=== PATIENT | male | born 1965 | race American Indian/Alaskan Native ===

== ENCOUNTER → 2018-10-12 10:58 | Outpatient (CLI) | payer OTHER, SELFPAY ==
--- NOTE | 2018-10-12 | DI.RAD.S_ITS ---
PROCEDURE: XR CERVICAL SPINE 2V OR 3V INDICATIONS: pain and numbness TECHNIQUE: 3 view(s) of the cervical spine were acquired. COMPARISON: [facility], , SPINE CERVICAL 2 OR 3VW, 08/26/2016, 13:54. [facility], , SPINE CERVICAL 2 OR 3VW, 03/06/2016, 8:30. [facility] , SPINE CERVICAL 2 OR 3VW, 12/04/2015, 8:51. [facility], , SPINE CERVICAL 2 OR 3VW, 10/02/2015, 9:41. FINDINGS: Bones: No fractures or dislocations to the T1 level. The lateral masses of C1 appear intact on the odontoid view. No suspicious bony lesions. Prior spine fusion surgery from C4-C6 with interbody disc prosthesis material noted at the 2 intervening levels. Soft tissues: No prevertebral soft tissue swelling. IMPRESSION: Prior spine fusion from C4-C6, normal alignment maintained. Dictated by: Sarmad Leal M.D. on 10/12/2018 at 11:53 Approved by: Sarmad Leal M.D. on 10/12/2018 at 11:55
== END ==
PROVIDERS: PCP Orthopaedic Surgery Orthopaedic Surgery of the Spine; Visit Provider Physician Assistant
DX: M54.2 Cervicalgia (principal); R20.0 Anesthesia of skin; Z98.1 Arthrodesis status
CPT/HCPCS: 72040

== ENCOUNTER 2019-03-17 13:24 | Emergency (ER) | payer OTHER, SELFPAY ==
[2019-03-17 13:24] VITALS: BP 118/70; PULSE 100; RESP 16; O2SAT 95
--- NOTE | 2019-03-17 14:32 | PC.NURSE ---
Pt has removed all monitoring devices. pt in room 8 in visual of nursing station. Both side rails in place, call button in reach. Pt resting comfortably, respirations even and unlabored. Appears in no acute distress.
--- NOTE | 2019-03-17 14:44 | DI.CT.S_ITS ---
PROCEDURE: CT CERVICAL SPINE WO CON INDICATIONS: neck pain, fall and passed out, etoh+ TECHNIQUE: Noncontrast 3 mm thick sections acquired from the skull base to the T4 level. Sagittal and coronal reformats were then constructed. For radiation dose reduction, the following was used: automated exposure control, adjustment of mA and/or kV according to patient size. COMPARISON: None. FINDINGS: Image quality: Excellent. Bones: Postsurgical changes compatible C4-C6 ACDF. Orthopedic hardware is intact. No lucencies are identified at the bone-hardware interface. No fractures or dislocations. Visualized superior ribs are intact. Spine degenerative disc disease and facet arthropathy. Soft tissues: Prevertebral soft tissues are normal in thickness. No paravertebral hematomas. No apical pneumothoraces. IMPRESSION: No fracture. No acute osseous lesion. If symptoms and/or clinical suspicion for pathology persists, evaluation with MRI may be helpful for further assessment. Dictated by: Sharri Velazquez MD, PhD on 03/17/2019 at 15:19 Approved by: Sharri Velazquez MD, PhD on 03/17/2019 at 15:24
--- NOTE | 2019-03-17 14:44 | DI.CT.S_ITS ---
PROCEDURE: CT HEAD/BRAIN WO CON INDICATIONS: passed out, headache, +ETOH TECHNIQUE: Noncontrast 4.5 mm thick angled axial sections acquired from the foramen magnum to the vertex, with coronal and sagittal reformats. For radiation dose reduction, the following was used: automated exposure control, adjustment of mA and/or kV according to patient size. COMPARISON: None. FINDINGS: Image quality: An age-indeterminate fracture involving the nasal bone is present. CSF spaces: Basal cisterns are patent. No extra-axial fluid collections. Ventricles are normal in size and shape. Brain: No midline shift. No intracranial masses or hemorrhage. Esparza-white matter interface is normal. Skull and face: Calvarium and visualized facial bones are intact, without suspicious lesions. Sinuses: Visualized sinuses and mastoids are clear. IMPRESSION: 1. Negative head CT. No acute intracranial hemorrhage. 2. Age indeterminate, but likely chronic, nasal bone fracture. Dictated by: Vickey Zelaya M.D. on 03/17/2019 at 14:16 Approved by: Vickey Zelaya M.D. on 03/17/2019 at 14:18
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
[2019-03-17 15:02] VITALS: BP 131/83; PULSE 104; RESP 19; O2SAT 92
[2019-03-17] MEDS: SODIUM CHLORIDE 0.9% 1,000 ML 1000 ML IV (15:23)
[2019-03-17] MEDS: ACETAMINOPHEN 325 MG TABLET 975 MG PO (15:24)
[2019-03-17] MEDS: ONDANSETRON 4 MG/2 ML INJ IV ×2 (15:24→19:49)
[2019-03-17 15:37] LABS: Add Manual Diff / Slide Review NO; Basophils Absolute Auto 100 /uL (0-100); Basophils Percent Auto 2.3 % (0-2); Eosinophils Absolute Auto 0 /uL (0-450); Eosinophils Percent Auto 0.2 % (2-4); Hematocrit 45.9 % (41-53); Hemoglobin 15.8 g/dL (13.5-17.5); Lymphocytes Absolute Auto 600 /uL (1100-4500); Lymphocytes Percent Auto 16.1 % (25-40); Mean Corpuscular HGB Conc 34.3 % (30-36); Mean Corpuscular Hemoglobin 31.2 PG (26-34); Mean Corpuscular Volume 90.8 fL (80-100); Monocytes Absolute Auto 200 /uL (0-900); Neutrophils Absolute Auto 2900 /uL (1500-7000); Neutrophils Percent Auto 76.4 % (50-75); Platelet Count 89 X10^3/uL (150-400); Red Blood Cell Count 5.06 X10^6/uL (4.5-5.9); Red Cell Distribution Width 17.9 % (11.6-14.8); White Blood Cell Count 3.8 X10^3/uL (4.5-11.0)
[2019-03-17 15:49] LABS: Alanine Aminotransferase 132 IU/L (<50); Albumin Globulin Ratio 1.3 (1.0-2.8); Alkaline Phosphatase 118 U/L (38-126); Aspartate Aminotransferase 352 IU/L (17-59); BUN Creatinine Ratio 5.7 (6-22); Bilirubin Total 1.1 mg/dL (0.2-1.3); Blood Urea Nitrogen 4 mg/dL (9-20); Calcium 7.8 mg/dL (8.4-10.2); Carbon Dioxide 29 mmol/L (22-32); Chloride 101 mmol/L (98-107); Estimated Glomerular Filt Rate > 60.0 mL/min (>60); Glucose 92 mg/dL (70-100); HEMOLYSIS 17 (0-50); Lipase 644 U/L (23-300); Potassium 3.8 mmol/L (3.4-5.1); Sodium 143 mmol/L (137-145)
[2019-03-17 15:57] LABS: Ethanol (ETOH) 381 mg/dL
[2019-03-17 16:29] LABS: Creatine Kinase 168 U/L (55-170)
[2019-03-17 16:30] VITALS: BP 106/66; PULSE 95; O2SAT 95
[2019-03-17 16:36] LABS: Troponin I < 0.012 ng/mL (0.01-0.034)
[2019-03-17 16:39] LABS: CKMB % Relative Index 0.4 % (1.5-5.0)
[2019-03-17 17:00] VITALS: BP 116/79; PULSE 86; O2SAT 98
--- NOTE | 2019-03-17 17:31 | PC.NURSE ---
Pt has removed own cervical collar
--- NOTE | 2019-03-17 17:37 | PC.NURSE ---
Pt sitting up in bed watching staff. I checked on pt. He requests sleeping pill. provider aware and no new orders at this time. Offered pt to use restroom and ask if she needs anything. Pt declines at this time but again requests sleeping pill. reminded pt again that there is nothing ordered at this time.
--- NOTE | 2019-03-17 18:37 | PC.NURSE ---
Pt ambulated to restroom with steady gait. Provider notified. Per provider, asked pt who can pick him up, Pt states he does not have anyone. No contacts listed in chart. Drew notified.
[2019-03-17 19:17] VITALS: BP 102/58; PULSE 88; RESP 16; O2SAT 100
== END 2019-03-17 20:20 | disposition home or self-care (01) ==
PROVIDERS: Emergency Provider Nurse Practitioner Family; PCP Orthopaedic Surgery Orthopaedic Surgery of the Spine
DX: S09.90XA Unspecified injury of head, initial encounter (principal); F10.920 Alcohol use, unspecified with intoxication, uncomplicated; M54.2 Cervicalgia; R55 Syncope and collapse
CPT/HCPCS: 36415; 70450; 72125; 80053; 80320; 82550; 82553; 83690; 84484; 85025; 93005; 93010; 96361; 96374; 96375; 99282; 99285; J2405

== ENCOUNTER → 2019-11-04 17:15 | Outpatient (ROUT) | payer OTHER, SELFPAY ==
[2019-11-04 17:48] LABS: NT-proBNP (BNP-Adult 18+) 2180 pg/mL (<125)
== END ==
PROVIDERS: PCP Orthopaedic Surgery Orthopaedic Surgery of the Spine; Visit Provider Physician Assistant
DX: K70.11 Alcoholic hepatitis with ascites (principal)
CPT/HCPCS: 83880

== ENCOUNTER 2020-01-29 17:06 | Emergency (ER) | payer MEDICAID, OTHER, SELFPAY ==
[2020-01-29] VITALS (52 sets, daily range): BP systolic 63–98; BP diastolic 33–62; PULSE 86–103; RESP 0–42; TEMP 31.1–32.8; O2SAT 90–100
--- NOTE | 2020-01-29 | DI.RAD.S_ITS ---
PROCEDURE: XR CHEST 1V INDICATIONS: CENTRAL LINE PLACEMENT TECHNIQUE: One view of the chest was acquired. COMPARISON: [facility], , XR CHEST 1V, 01/29/2020, 17:31. FINDINGS: Surgical changes and devices: Endotracheal tube and NG tube are unchanged. There is a new right central venous catheter, the tip of which is projected over the right atrium or IVC. Lungs and pleura: Lung volumes are low and dense basilar and mid lung consolidation is redemonstrated. No pneumothorax. Mediastinum: Mediastinal contours appear normal. Heart size is normal. Bones and chest wall: No suspicious bony lesions. Overlying soft tissues appear unremarkable. IMPRESSION: Right central venous catheter, the tip of which is projected over the right atrium and should be retracted approximately 10 cm. Dictated by: Kena Coto M.D. on 01/29/2020 at 18:01 Approved by: Kena Coto M.D. on 01/29/2020 at 18:04
--- NOTE | 2020-01-29 17:09 | DI.RAD.S_ITS ---
PROCEDURE: XR CHEST 1V INDICATIONS: ams, r/o pneumothorax, line placement, ET tube placement TECHNIQUE: One view of the chest was acquired. COMPARISON: [facility], CR, XR CHEST 1 VIEW, 11/29/2019, 10:48. FINDINGS: Surgical changes and devices: Patient is status post median sternotomy. An endotracheal tube is present in some of the films and is 3.6 cm above the vikas. An NG tube is present, the tip of which is not visualized. Lungs and pleura: Lung volumes are low. Pulmonary radiopacities are present at the bilateral lung bases, most confluent on the left. There is diffuse interstitial opacities. No definite pneumothorax. Mediastinum: Mediastinal contours appear normal. Heart size is normal. Bones and chest wall: No suspicious bony lesions. Overlying soft tissues appear unremarkable. IMPRESSION: 1. Status post intubation. 2. Low lung volumes and pulmonary edema. 3. Probable consolidation at the left lung base versus atelectasis. Dictated by: Kena Coto M.D. on 01/29/2020 at 17:34 Approved by: Kena Coto M.D. on 01/29/2020 at 17:36
[2020-01-29] MEDS: NOREPINEPHRINE 4 MG in DEXTROSE 5% IN WATER 250 ML 30.48 ML IV (17:48)
[2020-01-29] MEDS: SODIUM CHLORIDE 0.9% 1,000 ML 1000 ML IV ×2 (17:48→18:29)
[2020-01-29] MEDS: DEXTROSE 50 % IN WATER 25 GM/50 ML SYRINGE IV ×2 (18:00→19:27)
[2020-01-29] MEDS: ROCURONIUM 50 MG/5 ML INJ 51 MG IV (18:04)
[2020-01-29] MEDS: propofoL 1,000 MG/100 ML VIAL 2.568 MG IV (18:06)
[2020-01-29 18:14] LABS: COVID19 -Nasal RAPID Negative (Negative)
[2020-01-29] MEDS: PANTOPRAZOLE 40 MG VIAL IV (18:22)
--- NOTE | 2020-01-29 18:24 | ED_ITS ---
HPI - Altered Mental Status General Chief Complaint: Unresponsive Stated Complaint: decreased mental status Time Seen by Provider: 01/29/20 17:07 Source: EMS Mode of arrival: EMS Limitations: altered mental status History of Present Illness HPI narrative: Patient is a 54-year-old male with known alcoholic cirrhosis fluids had decreased p.o. intake the last 2-3 days according to family has become occulta touch with [facility] and progressively decreasing. He was nonverbal yesterday but no longer keeping his GCS of 9 according to EMS. Family states that there is vomit all over the bathroom and found alcohol under his bed. Currently a full code. Viola ([phone] Patient does not follow commands but does localize pain MD complaint: altered mental status Context: alcohol abuse Related Data Home Medications Medication Instructions Recorded Confirmed No Known Home Medications 03/17/19 03/17/19 Allergies Allergy/AdvReac Type Severity Reaction Status Date / Time aspirin [ASPIRIN] Allergy Severe ANAPHYLAXIS Verified 01/29/20 19:49 ibuprofen [IBUPROFEN] Allergy Mild TONGUE Verified 01/29/20 19:49 SWELLING Review of Systems Review of Systems ROS Unobtainable: Unobtainable due to medical condition Patient History Medical History (Updated 01/29/20 @ 18:38 by Aide Dorantes DO) Alcoholism (Acute) Cervical disc herniation (Acute) Social History (Updated 03/17/19 @ 14:53 by MARVIN Redmond) Smoking Status: Never smoker alcohol intake: current substance use type: does not use Smoking Status: Never smoker alcohol intake frequency: 3 or more drinks per day Exam Initial Vital Signs Initial Vital Signs: Vital Signs Pulse Rate 93 H 01/29/20 17:06 Respiratory Rate 24 01/29/20 17:06 Blood Pressure 63/43 L 01/29/20 17:06 Gen.: Patient is jaundice response to pain and voice HEENT: Dried blood around mouth head is atraumatic Neck: No JVD Lungs: Clear bilaterally Cardiac: Regular rate no murmur Abdomen: Distended soft, positive bowel sounds Extremitie: No gross bony deformities peripheral pulses intact his all extremities Neurologic: Opens eyes spontaneously, responds to pain Procedures Central Line Placement Right IJ: Time Out Performed: Yes Patient Placed on Monitor/Pulse Ox: Yes MD Prep: mask, gown and gloves Central Line Prep: Chlorhexidine scrub Local Anesthetic: lidocaine 1% Ultrasound Used for Placement: Yes Complications: none Additional Comments: Initial attempt at right IJ was unsuccessful. Right SC: Time Out Performed: Yes Patient Placed on Monitor/Pulse Ox: Yes Prep: mask, gown and gloves Central Line Prep: Chlorhexidine scrub Ultrasound Used for Placement: No Post Procedure X-Ray: no pneumothorax seen Patient Tolerated Procedure: No complications Additional Comments: Unsuccessful Right Femoral: Time Out Performed: Yes MD Prep: mask, gown and gloves Complications: arterial puncture/cannulation Additional Comments: Arterial puncture unsuccessful Intubation Time out performed: Yes sedative: Etomidate Mg Given: 20 paralytic: Rocuronium Mg Given: 100 Laryngoscope: fiber optic video scope ET Tube Size: 7.5 Tube Placement Confirmation: Visualized tube passing through cords Patient Tolerated Procedure: Well Intubation Complications: none Scores GCS [place] coma scale eye opening: Spontaneous [place] coma scale verbal response: Sounds [place] coma scale motor response: Localising [place] coma scale total score: 11 Course Orders Ordered: ED Orders 01/29/20 17:08 Blood Culture Stat EKG-12 Lead Stat 01/29/20 17:09 XR chest 1V Stat 01/29/20 17:11 Fresh Frozen Plasma Stat Packed Cells Stat Type and Screen Stat 01/29/20 17:27 Urinalysis and Microscopic Stat Urine Drug Screen, Rapid Stat 01/29/20 17:35 Endotracheal tube suction As needed 01/29/20 17:40 COVID19 -ED/INPAT/OR/L&D Stat 01/29/20 18:14 Arterial Blood Gas Daily 01/29/20 18:48 Acetaminophen Stat Ammonia (NH3) Stat Complete Blood Count AUTO DIFF Stat Comprehensive Metabolic Panel Stat Ethanol (ETOH) Stat Procalcitonin Stat Thyroid Stimulating Hormone Stat Troponin & CK Cardiac Panel Stat 01/29/20 18:59 Lactate (Lactic Acid) Stat Partial Thromboplastin Time Stat Prothrombin Time INR Stat 01/30/20 17:45 Arterial Blood Gas Daily 01/31/20 17:45 Arterial Blood Gas Daily 02/01/20 17:45 Arterial Blood Gas Daily 02/02/20 17:45 Arterial Blood Gas Daily 02/03/20 17:45 Arterial Blood Gas Daily 02/04/20 17:45 Arterial Blood Gas Daily 02/05/20 17:45 Arterial Blood Gas Daily 02/06/20 17:45 Arterial Blood Gas Daily 02/07/20 17:45 Arterial Blood Gas Daily 02/08/20 17:45 Arterial Blood Gas Daily 02/09/20 17:45 Arterial Blood Gas Daily 02/10/20 17:45 Arterial Blood Gas Daily 02/11/20 17:45 Arterial Blood Gas Daily Fentanyl (Sublimaze) 30 mcg 0.35 mcg/kg (30 mcg) IV Q1HR PRN PRN Reason: Pain, Severe (7-10) Norepinephrine Bitartrate 4 mg (/ Dextrose) 254 mls @ 30.48 mls/hr IV TITRATE JANELLE; Protocol Last Titration: 01/29/20 18:07 Dose: 20 mcg/min, 76.2 mls/hr Documented by: Admin: 01/29/20 17:48 Dose: 8 mcg/min, 30.48 mls/hr Documented by: VICKI Fentanyl 1,000 mcg/ Dextrose 270 mls @ 16.178 mls/hr IV TITRATE JANELLE; Protocol Last Admin: 01/29/20 19:07 Dose: Not Given Documented by: VICKI Propofol (Propofol) 1,000 mg in 100 mls @ 2.568 mls/hr IV TITRATE JANELLE; Protocol Last Titration: 01/29/20 19:24 Dose: 0 mcg/kg/min, 0 mls/hr Documented by: Titration: 01/29/20 18:23 Dose: 10 mcg/kg/min, 5.136 mls/hr Documented by: Admin: 01/29/20 18:06 Dose: 5 mcg/kg/min, 2.568 mls/hr Documented by: LYSSA Pantoprazole Sodium 80 mg/ (Sodium Chloride) 100 mls @ 10 mls/hr IV CONT JANELLE Last Admin: 01/29/20 19:23 Dose: 8 mg/hr, 10 mls/hr Documented by: VICKI Octreotide Acetate 500 mcg/ (Sodium Chloride) 101 mls @ 10.1 mls/hr IV CONT JANELLE; Protocol Last Admin: 01/29/20 19:23 Dose: 50 mcg/hr, 10.1 mls/hr Documented by: VICKI Discontinued Medications Dextrose (D50w) 25 gm IV NOW ONE Stop: 01/29/20 17:09 Last Admin: 01/29/20 18:00 Dose: 25 gm Documented by: LYSSA Dextrose (D50w) 25 gm IV NOW ONE Stop: 01/29/20 19:26 Last Admin: 01/29/20 19:27 Dose: 25 gm Documented by: LYSSA Etomidate (Amidate) 25.7 mg 0.3 mg/kg (25.7 mg) IV NOW ONE Stop: 01/29/20 17:37 Last Admin: 01/29/20 18:05 Dose: Not Given Documented by: LYSSA Sodium Chloride (Normal Saline 0.9%) 1,000 mls @ 1,000 mls/hr IV BOLUS ONE Stop: 01/29/20 18:36 Last Admin: 01/29/20 17:48 Dose: 1,000 mls/hr Documented by: VICKI Sodium Chloride (Normal Saline 0.9%) 1,000 mls @ 1,000 mls/hr IV BOLUS ONE Stop: 01/29/20 19:22 Last Admin: 01/29/20 18:29 Dose: 1,000 mls/hr Documented by: LYSSA Ceftriaxone Sodium/Dextrose (Rocephin) 2 gm in 50 mls @ 100 mls/hr IV NOW ONE Stop: 01/29/20 19:27 Last Infusion: 01/29/20 19:27 Dose: 0 mls/hr Documented by: Admin: 01/29/20 19:15 Dose: 100 mls/hr Documented by: VICKI Octreotide Acetate (Sandostatin) 50 mcg IV NOW ONE Stop: 01/29/20 18:37 Pantoprazole Sodium (Protonix) 40 mg IV NOW ONE Stop: 01/29/20 17:12 Last Admin: 01/29/20 18:22 Dose: 40 mg Documented by: LYSSA Rocuronium Clifford (Zemuron) 51 mg 0.6 mg/kg (51 mg) IV NOW ONE Stop: 01/29/20 17:37 Last Admin: 01/29/20 18:04 Dose: 51 mg Documented by: LYSSA Vital Signs Vital signs: Vital Signs - 8 hr 01/29/20 17:06 01/29/20 17:13 01/29/20 17:14 Pulse Rate 93 H 97 H 91 H Respiratory Rate 24 14 24 Blood Pressure 63/43 L 74/34 L Pulse Oximetry 99 99 01/29/20 17:15 01/29/20 17:16 01/29/20 17:20 Pulse Rate 90 88 93 H Respiratory Rate 33 H 28 H 35 H Blood Pressure 83/47 L Pulse Oximetry 97 98 99 01/29/20 17:21 01/29/20 17:25 01/29/20 17:30 Pulse Rate 92 H 94 H 88 Respiratory Rate 30 H 29 H 29 H Blood Pressure 91/52 L 89/48 L 72/36 L Pulse Oximetry 99 97 96 01/29/20 17:35 01/29/20 17:40 01/29/20 17:43 Pulse Rate 86 89 91 H Respiratory Rate 42 H 26 H 28 H Blood Pressure 83/46 L Pulse Oximetry 91 100 97 01/29/20 17:45 01/29/20 17:46 01/29/20 17:48 Pulse Rate 91 H 94 H 102 H Respiratory Rate 29 H 21 0 L Blood Pressure 98/62 76/35 L Pulse Oximetry 100 95 90 L 01/29/20 17:50 01/29/20 17:51 01/29/20 17:55 Pulse Rate 97 H 97 H 96 H Respiratory Rate 8 L 21 21 Blood Pressure 81/37 L Pulse Oximetry 98 96 100 01/29/20 17:56 01/29/20 17:57 01/29/20 18:00 Pulse Rate 96 H 96 H 97 H Respiratory Rate 15 17 21 Blood Pressure 71/34 L 70/34 L 80/41 L Pulse Oximetry 100 91 93 01/29/20 18:03 01/29/20 18:05 01/29/20 18:06 Pulse Rate 99 H 99 H 100 H Respiratory Rate 16 14 15 Blood Pressure 87/39 L 88/40 L Pulse Oximetry 100 100 100 01/29/20 18:09 01/29/20 18:10 01/29/20 18:12 Pulse Rate 100 H 102 H 100 H Respiratory Rate 18 24 14 Blood Pressure 86/51 L 85/38 L Pulse Oximetry 100 99 99 01/29/20 18:15 01/29/20 18:18 01/29/20 18:20 Pulse Rate 100 H 100 H 101 H Respiratory Rate 14 14 15 Blood Pressure 84/39 L 84/38 L Pulse Oximetry 99 99 98 01/29/20 18:21 01/29/20 18:24 01/29/20 18:25 Pulse Rate 100 H 100 H 98 H Respiratory Rate 15 17 15 Blood Pressure 82/38 L 73/34 L Pulse Oximetry 98 93 97 01/29/20 18:27 01/29/20 18:30 01/29/20 18:35 Pulse Rate 99 H 98 H 97 H Respiratory Rate 17 15 15 Blood Pressure 72/33 L Pulse Oximetry 97 98 97 01/29/20 18:40 01/29/20 18:41 01/29/20 18:42 Pulse Rate 97 H 97 H 97 H Respiratory Rate 18 17 18 Blood Pressure 74/36 L 73/33 L Pulse Oximetry 99 99 99 01/29/20 18:45 01/29/20 18:50 01/29/20 18:54 Pulse Rate 97 H 97 H 97 H Respiratory Rate 14 20 16 Blood Pressure 85/39 L Pulse Oximetry 98 97 98 01/29/20 18:55 01/29/20 18:57 01/29/20 19:00 Pulse Rate 99 H 100 H 101 H Respiratory Rate 14 14 15 Blood Pressure 88/42 L 91/42 L Pulse Oximetry 98 98 99 01/29/20 19:04 01/29/20 19:05 01/29/20 19:06 Pulse Rate 101 H 101 H 101 H Respiratory Rate 19 18 14 Blood Pressure 96/46 L 96/46 L Pulse Oximetry 97 97 100 01/29/20 19:09 01/29/20 19:10 01/29/20 19:12 Pulse Rate 103 H 103 H 102 H Respiratory Rate 14 15 14 Blood Pressure 89/45 L 86/41 L Pulse Oximetry 100 99 99 01/29/20 19:15 Pulse Rate 101 H Respiratory Rate 14 Blood Pressure 84/41 L Pulse Oximetry 99 MDM - Altered Mental Status Lab Data Attestation: I reviewed the patient's lab results. Result diagrams: 01/29/20 18:48 01/29/20 18:48 Labs: Lab Results 01/29/20 01/29/20 01/29/20 Range/Units 17:40 18:14 18:48 WBC 5.9 (4.5-11.0) X10^3/uL RBC 2.77 L (4.5-5.9) X10^6/uL Hgb 9.5 L (13.5-17.5) g/dL Hct 29.0 L (41-53) % MCV 104.9 H (80-100) fL MCH 34.3 H (26-34) PG MCHC 32.7 (30-36) % RDW 22.0 H (11.6-14.8) % Plt Count 84 L (150-400) X10^3/uL Neut % (Auto) 71.6 (50-75) % Lymph % (Auto) 20.5 L (25-40) % [place] % (Auto) 6.1 (3-14) % Eos % (Auto) 0.6 L (2-4) % Baso % (Auto) 1.2 (0-2) % Neut # (Auto) 4300 (7602-1167) /uL Lymph # (Auto) 1200 (8053-5848) /uL [place] # (Auto) 400 (0-900) /uL Eos # (Auto) 0 (0-450) /uL Baso # (Auto) 100 (0-100) /uL Platelet Estimate Decreased on smear RBC Morphology See below Poikilocytosis 2+ H Anisocytosis 2+ H Acanthocytes (Spur) 2+ PT (10.1-12.7) SECONDS INR (0.9-1.3) APTT ABG pH 7.04 L* (7.35-7.45) ABG pCO2 32.5 L (35-45) mmHg ABG pO2 61 L (80-100) mmHg ABG HCO3 9 L (22-26) mmol/L ABG Total CO2 10 L (21-31) mmol/L ABG O2 Saturation 78 L* (95-100) % ABG Base Excess -22.0 L (-2-2) mmol/L FiO2 60 Sodium (137-145) mmol/L Potassium (3.4-5.1) mmol/L Chloride (98-107) mmol/L Carbon Dioxide (22-32) mmol/L BUN (9-20) mg/dL Creatinine (0.66-1.25) mg/dL Estimated GFR (>60) mL/min BUN/Creatinine Ratio (6-22) Glucose (70-100) mg/dL Lactate (0.7-2.1) mmol/L Calcium (8.4-10.2) mg/dL Total Bilirubin (0.2-1.3) mg/dL AST (17-59) IU/L ALT (<50) IU/L Alkaline Phosphatase (38-126) U/L Ammonia (9-30) umol/L Total Creatine Kinase (55-170) U/L CK-MB (CK-2) (<2.37) ng/mL CK-MB (CK-2) Rel Index (1.5-5.0) % Troponin I (0.01-0.034) ng/mL Total Protein (6.3-8.2) g/dL Albumin (3.5-5.0) g/dL Globulin (1.7-4.1) g/dL Albumin/Globulin Ratio (1.0-2.8) Acetaminophen (10-30) ug/mL Ethyl Alcohol ( - 10) mg/dL COVID-19 PCR Negative (Negative) 01/29/20 01/29/20 01/29/20 Range/Units 18:48 18:48 18:59 WBC (4.5-11.0) X10^3/uL RBC (4.5-5.9) X10^6/uL Hgb (13.5-17.5) g/dL Hct (41-53) % MCV (80-100) fL MCH (26-34) PG MCHC (30-36) % RDW (11.6-14.8) % Plt Count (150-400) X10^3/uL Neut % (Auto) (50-75) % Lymph % (Auto) (25-40) % [place] % (Auto) (3-14) % Eos % (Auto) (2-4) % Baso % (Auto) (0-2) % Neut # (Auto) (8861-4428) /uL Lymph # (Auto) (2137-0871) /uL [place] # (Auto) (0-900) /uL Eos # (Auto) (0-450) /uL Baso # (Auto) (0-100) /uL Platelet Estimate RBC Morphology Poikilocytosis Anisocytosis Acanthocytes (Spur) PT 49.0 H (10.1-12.7) SECONDS INR 4.3 H (0.9-1.3) APTT TNP ABG pH (7.35-7.45) ABG pCO2 (35-45) mmHg ABG pO2 (80-100) mmHg ABG HCO3 (22-26) mmol/L ABG Total CO2 (21-31) mmol/L ABG O2 Saturation (95-100) % ABG Base Excess (-2-2) mmol/L FiO2 Sodium 130 L (137-145) mmol/L Potassium 3.5 (3.4-5.1) mmol/L Chloride 97 L (98-107) mmol/L Carbon Dioxide 10 L (22-32) mmol/L BUN 9 (9-20) mg/dL Creatinine 2.14 H (0.66-1.25) mg/dL Estimated GFR 32.2 L (>60) mL/min BUN/Creatinine Ratio 4.2 L (6-22) Glucose 70 (70-100) mg/dL Lactate (0.7-2.1) mmol/L Calcium 7.0 L (8.4-10.2) mg/dL Total Bilirubin 4.2 H (0.2-1.3) mg/dL AST 807 H (17-59) IU/L ALT 90 H (<50) IU/L Alkaline Phosphatase 109 (38-126) U/L Ammonia 120 H (9-30) umol/L Total Creatine Kinase 243 H (55-170) U/L CK-MB (CK-2) 3.74 H (<2.37) ng/mL CK-MB (CK-2) Rel Index 1.5 (1.5-5.0) % Troponin I 0.025 (0.01-0.034) ng/mL Total Protein 5.6 L (6.3-8.2) g/dL Albumin 2.2 L (3.5-5.0) g/dL Globulin 3.4 (1.7-4.1) g/dL Albumin/Globulin Ratio 0.6 L (1.0-2.8) Acetaminophen < 10 L (10-30) ug/mL Ethyl Alcohol < 10 ( - 10) mg/dL COVID-19 PCR (Negative) 01/29/20 Range/Units 18:59 WBC (4.5-11.0) X10^3/uL RBC (4.5-5.9) X10^6/uL Hgb (13.5-17.5) g/dL Hct (41-53) % MCV (80-100) fL MCH (26-34) PG MCHC (30-36) % RDW (11.6-14.8) % Plt Count (150-400) X10^3/uL Neut % (Auto) (50-75) % Lymph % (Auto) (25-40) % [place] % (Auto) (3-14) % Eos % (Auto) (2-4) % Baso % (Auto) (0-2) % Neut # (Auto) (0062-1628) /uL Lymph # (Auto) (2478-0791) /uL [place] # (Auto) (0-900) /uL Eos # (Auto) (0-450) /uL Baso # (Auto) (0-100) /uL Platelet Estimate RBC Morphology Poikilocytosis Anisocytosis Acanthocytes (Spur) PT (10.1-12.7) SECONDS INR (0.9-1.3) APTT ABG pH (7.35-7.45) ABG pCO2 (35-45) mmHg ABG pO2 (80-100) mmHg ABG HCO3 (22-26) mmol/L ABG Total CO2 (21-31) mmol/L ABG O2 Saturation (95-100) % ABG Base Excess (-2-2) mmol/L FiO2 Sodium (137-145) mmol/L Potassium (3.4-5.1) mmol/L Chloride (98-107) mmol/L Carbon Dioxide (22-32) mmol/L BUN (9-20) mg/dL Creatinine (0.66-1.25) mg/dL Estimated GFR (>60) mL/min BUN/Creatinine Ratio (6-22) Glucose (70-100) mg/dL Lactate 19.1 H* (0.7-2.1) mmol/L Calcium (8.4-10.2) mg/dL Total Bilirubin (0.2-1.3) mg/dL AST (17-59) IU/L ALT (<50) IU/L Alkaline Phosphatase (38-126) U/L Ammonia (9-30) umol/L Total Creatine Kinase (55-170) U/L CK-MB (CK-2) (<2.37) ng/mL CK-MB (CK-2) Rel Index (1.5-5.0) % Troponin I (0.01-0.034) ng/mL Total Protein (6.3-8.2) g/dL Albumin (3.5-5.0) g/dL Globulin (1.7-4.1) g/dL Albumin/Globulin Ratio (1.0-2.8) Acetaminophen (10-30) ug/mL Ethyl Alcohol ( - 10) mg/dL COVID-19 PCR (Negative) Point of Care Testing Glucose POC 77 Imaging Data Chest x-ray: Radiologist's Impression: PROCEDURE: XR CHEST 1V INDICATIONS: ams, r/o pneumothorax, line placement, ET tube placement TECHNIQUE: One view of the chest was acquired. COMPARISON: [facility], CR, XR CHEST 1 VIEW, 11/29/2019, 10:48. FINDINGS: Surgical changes and devices: Patient is status post median sternotomy. An endotracheal tube is present in some of the films and is 3.6 cm above the vikas. An NG tube is present, the tip of which is not visualized. Lungs and pleura: Lung volumes are low. Pulmonary radiopacities are present at the bilateral lung bases, most confluent on the left. There is diffuse interstitial opacities. No definite pneumothorax. Mediastinum: Mediastinal contours appear normal. Heart size is normal. Bones and chest wall: No suspicious bony lesions. Overlying soft tissues appear unremarkable. IMPRESSION: 1. Status post intubation. 2. Low lung volumes and pulmonary edema. 3. Probable consolidation at the left lung base versus atelectasis. Dictated by: Kena Coto M.D. on 01/29/2020 at 17:34 MDM Narrative Medical decision making narrative: Levophed started through peripheral line to maintain map greater than 65 due to severe hypotension. Initially central line was placed patient was localizing did not have any airway issues. 3 central line placement patient started having increased difficulty breathing. Central line placement: [Right IJ] with ultrasound guidance Not compressible veins identified on ultrasound. I watched needle penetrate vein, dark red blood return, nonpulsatile, wire threaded through easily. Site was dilated and catheter placed. All ports had dark red blood flow return with easy flush. Placement was confirmed with x-ray, no complications. Placement was aborted and elected for intubation. Intubation revealed so copious amounts of coffee-ground emesis. ET tube was placed through the vocal cords. After repeated central line attempts in at IJ, subclavian and femoral I 0 was placed. Blood products were started massive transfusion protocol initiated. Different provider Dr. Patel successfully got right IJ. Patient is unstable upper GI bleed. Air left activated have review called. To unit of O-negative blood started sternal illness epilepsy are given to airl ift Dr. Bishop at [facility] accepts patient. Request Rocephin recommends increasing ventilating more and request CBC results. Critical Care Time Critical Care Time Critical Care Time: Yes Total Critical Care Time: 90 Attestation: The high probability of a clinically significant, sudden or life threatening deterioration of the [cardiovascular] system(s) required my full and direct attention, intervention and personal management. The aggregate critical care time was 90 minutes. This time is in addition to time spent performing reported procedures but includes the following: [x] Data Review and interpretation [x] Patient assessment and monitoring of vital signs [x] Documentation [x] Medication orders and management Discharge Plan Departure Patient Disposition: [facility] Clinical Impression: Acute upper gastrointestinal bleeding, Hemorrhagic shock, Respiratory failure Prescriptions: No Action No Known Home Medications RF: 0 Referrals: Kedar Eckert MD [Primary Care Provider] -
[2020-01-29 18:38] LABS: HCO3 ABG 9 mmol/L (22-26); PCO2 ABG 32.5 mmHg (35-45); PO2 ABG 61 mmHg (80-100); TCO2 ABG 10 mmol/L (21-31); pH ABG 7.04 (7.35-7.45)
[2020-01-29 18:39] LABS: Fractionated Inspired Oxygen 60; Oxygen Saturation ABG 78 % (95-100)
[2020-01-29 19:09] LABS: Add Manual Diff / Slide Review NO; Basophils Absolute Auto 100 /uL (0-100); Basophils Percent Auto 1.2 % (0-2); Eosinophils Absolute Auto 0 /uL (0-450); Eosinophils Percent Auto 0.6 % (2-4); Hemoglobin 9.5 g/dL (13.5-17.5); Lymphocytes Absolute Auto 1200 /uL (1100-4500); Lymphocytes Percent Auto 20.5 % (25-40); Mean Corpuscular HGB Conc 32.7 % (30-36); Mean Corpuscular Hemoglobin 34.3 PG (26-34); Mean Corpuscular Volume 104.9 fL (80-100); Monocytes Absolute Auto 400 /uL (0-900); Monocytes Percent Auto 6.1 % (3-14); Neutrophils Absolute Auto 4300 /uL (1500-7000); Neutrophils Percent Auto 71.6 % (50-75); Red Blood Cell Count 2.77 X10^6/uL (4.5-5.9); White Blood Cell Count 5.9 X10^3/uL (4.5-11.0)
[2020-01-29 19:11] LABS: Platelet Count 84 X10^3/uL (150-400)
[2020-01-29 19:13] LABS: Ammonia (NH3) 120 umol/L (9-30)
[2020-01-29 19:15] LABS: INR 4.3 (0.9-1.3)
[2020-01-29 19:15] LABS: Acetaminophen < 10 ug/mL (10-30); Alanine Aminotransferase 90 IU/L (<50); Albumin 2.2 g/dL (3.5-5.0); Albumin Globulin Ratio 0.6 (1.0-2.8); Alkaline Phosphatase 109 U/L (38-126); BUN Creatinine Ratio 4.2 (6-22); Bilirubin Total 4.2 mg/dL (0.2-1.3); Blood Urea Nitrogen 9 mg/dL (9-20); Chloride 97 mmol/L (98-107); Creatine Kinase 243 U/L (55-170); Estimated Glomerular Filt Rate 32.2 mL/min (>60); Ethanol (ETOH) < 10 mg/dL; Globulin 3.4 g/dL (1.7-4.1); Glucose 70 mg/dL (70-100); Sodium 130 mmol/L (137-145); Total Protein 5.6 g/dL (6.3-8.2)
[2020-01-29] MEDS: CEFTRIAXONE 2 GM/50 ML FROZ.PIGGY IV (19:15)
[2020-01-29 19:16] LABS: Carbon Dioxide 10 mmol/L (22-32)
[2020-01-29 19:19] LABS: Potassium 3.5 mmol/L (3.4-5.1)
[2020-01-29 19:23] LABS: Aspartate Aminotransferase 807 IU/L (17-59)
[2020-01-29] MEDS: PANTOPRAZOLE 80 MG in SODIUM CHLORIDE 0.9% 100 ML 10 ML IV (19:23)
[2020-01-29] MEDS: OCTREOTIDE 500 MCG in SODIUM CHLORIDE 0.9% 100 ML 10.1 ML IV (19:23)
[2020-01-29 19:25] LABS: Troponin I 0.025 ng/mL (0.01-0.034)
[2020-01-29 19:29] LABS: Lactate (Lactic Acid) 19.1 mmol/L (0.7-2.1)
[2020-01-29 19:30] LABS: CKMB % Relative Index 1.5 % (1.5-5.0); Creatine Kinase MB 3.74 ng/mL (<2.37)
[2020-01-29 19:31] LABS: HEMOLYSIS 92 (0-50)
[2020-01-29 19:34] LABS: Acanthocytes 2+; Anisocytosis 2+; Platelet Estimate Decreased on smear; Poikilocytosis 2+
[2020-01-29 19:45] LABS: Appearance Urine UA SL CLOUDY; Bilirubin Urine UA 3+ (NEGATIVE); Color Urine UA BROWN; Glucose Urine UA TRACE g/dL (Negative); Ketones Urine UA TRACE (NEGATIVE); Leukocyte Esterase Urine UA TRACE (NEGATIVE); Nitrite Urine UA POSITIVE (Negative); Occult Blood Urine UA 1+ (Negative); Protein Urine UA 3+ (Negative); Specific Gravity Urine UA 1.025 (1.000-1.035); pH Urine UA 6.5 (4.5-8.0)
[2020-01-29 19:49] LABS: Thyroid Stimulating Hormone 0.393 uIU/mL (0.47-4.68)
[2020-01-29 20:01] LABS: UR Morphine/Opiate cutoff 300 Negative (Negative); Ur Creatinine Normal (Normal); Ur Specific Gravity Normal (Normal); Urine Amphetamines Negative (Negative); Urine Barbiturates Negative (Negative); Urine Benzodiazepines Negative (Negative); Urine Cocaine Positive (Negative); Urine MDMA Negative (Negative); Urine Methadone Negative (Negative); Urine Methamphetamines Negative (Negative); Urine Oxycodone Negative (Negative); Urine Phencyclidine Negative (Negative); Urine Tetrahydrocannabinol Positive (Negative); Urine Tricyclic Antidepressant Negative (Negative); Urine pH Normal (Normal)
[2020-01-29 20:03] LABS: Ictotest Urine Positive (Negative)
[2020-01-29 20:04] LABS: Amorphous Sediment Urine 1+; Bacteria Urine Occasional (0-1); Culture Indicated Urine Specimen Cultured; Hyaline Casts Urine 30-100/LPF; Mucus Urine 1+ (Negative); RBC Urine 1-5/HPF (0-5/HPF); WBC Urine 1-5/HPF (0-5/HPF)
--- NOTE | 2020-01-29 20:04 | PC.NURSE ---
Summary Note: Pt arrived via EMS hypotensive, poorly responsive, cold to touch. Placed on monitors, Dr. Dorantes in to evaluate. IV established, NS liter bolus started. Pt continued to deteriorate and decision was made to intubate and sucure the airway. Norepi started for persistent hypotension. Pt intubated w/ difficultly r/t blood in airway. 7.5 ETT secured @ 23 cm at gum line. Chest x ray to confirm placement confirmed. Norepi titrated for response. Dr. Dorantes unable to gain central access and placed IO to left humeral head w/ + blood return. OG placed w/ > 1000 cc dark coffee grounds / blood out. Mass Transfusion protocol called to lab. Blood products given Packed Cells [id number] (completed 350 cc in) Packed Cells [id number] (completed 350 cc in) AB Plasma [id number] Part A (completed prior to [facility] transfer) AB Plasma [id number] Part D (Started in ED and continued in transport with Airlift) [facility] NW arrived at bedside. Report given to Transport RNs. Running at time of transport: Norepi Octrotide Pantoprazole FFP Critical labs called directly to Dr. Dorantes and Dr. Patel.
[2020-01-29 20:10] LABS: Procalcitonin 0.17 ng/mL (<0.5)
[2020-01-29 21:00] LABS: Reflexed Lactate in 2 Hours Y
== END 2020-01-29 19:45 | disposition short-term general hospital (02) ==
PROVIDERS: Emergency Provider Emergency Medicine; PCP Orthopaedic Surgery Orthopaedic Surgery of the Spine
DX: K92.2 Gastrointestinal hemorrhage, unspecified (principal); R57.8 Other shock; J96.90 Respiratory failure, unspecified, unspecified whether with hypoxia or hypercapnia
CPT/HCPCS: 31500; 36415; 36430; 36573; 36600; 51701; 71045; 80053; 80305; 80320; 80329; 81001; 82140; 82550; 82553; 82805; 82962; 83605; 84145; 84443; 84484; 85025; 85610; 86850; 86900; 86901; 86927; 87040; 87086; 87635; 93005; 93010; 94770; 94799; 96365; 96366; 96368; 96375; 99285; 99291; 99292; P9016; C9113; G0480; J0696; J2354; J2704